=== PATIENT | male | born 1985 | race Caucasian/White ===

== ENCOUNTER 2018-07-05 08:00 | Emergency (ER) | payer OTHER ==
[2018-07-05 08:15] VITALS: BP 127/88
--- NOTE | 2018-07-05 08:45 | UC ---
Pediatric ENT HPI - HPI Summary HPI Summary: 32 year old male with sore throat. Pt c/o sore throat for a few days and mild headache. Sx started about 2-3 days ago and not improved Pt concerned about strep throat as noticed "white spots". Has 2 year at home and worried and never had mono. no fever. can swallow at this time and no extensive pain . [ End ] - History Of Current Complaint Chief Complaint: UCGeneralIllness Stated Complaint: SORE THROAT Time Seen by Provider: 07/05/18 08:21 Hx Obtained From: Patient Onset/Duration: Gradual Onset Timing: Constant Pain Intensity: 2 - Allergies/Home Medications Allergies/Adverse Reactions: Allergies Allergy/AdvReac Type Severity Reaction Status Date / Time No Known Allergies Allergy Verified 07/05/18 08:08 Home Medications: Home Medications Ibuprofen TAB* [Motrin TAB* 400 MG] 400 mg PO Q6H PRN 07/05/18 [History Confirmed 07/05/18] Past Medical History Previously Healthy: Yes - Social History Lives With: family Hx Smoking Exposure: No Review Of Systems ENT: Throat Pain All Other Systems Reviewed And Are Negative: Yes Physical Exam Triage Information Reviewed: Yes Vital Signs: Initial Vital Signs Temp 98.1 F 07/05/18 08:09 Pulse 83 07/05/18 08:09 Resp 16 07/05/18 08:09 BP 127/88 07/05/18 08:09 Pulse Ox 97 07/05/18 08:09 Vital Signs Reviewed: Yes Appearance: Well-Appearing, No Pain Distress, Well-Nourished Eyes: Positive: Normal ENT: Positive: Normal ENT inspection, Pharyngeal erythema, Tonsillar swelling, Tonsillar exudate. Negative: Nasal congestion, Nasal drainage, TM bulging, TM dull, TM red Neck: Positive: Supple Respiratory: Positive: Chest non-tender, Lungs clear, Normal breath sounds Cardiovascular: Positive: Normal Musculoskeletal: Positive: Normal Neurological: Positive: Normal Psychological: Positive: Normal Pediatric EENT Course/Dx - Course Course Of Treatment: neg rapid strep. he is very worried about his 2 year old at home getting strep for that reason will send for culture to confirm. could be mono as well -- sx started 3 days ago so early to test but can return in 1 week for testing if he wants, discussed reducing transmission of strep or mono with good hand hygeine and not sharing cups try to not kiss family / children for some time. no work until next week he declined note. - Differential Dx/Diagnosis Differential Diagnosis/HQI/PQRI: Pharyngitis, Tonsillitis Provider Diagnoses: tonsillitis Discharge - Sign-Out/Discharge Documenting (check all that apply): Patient Departure All imaging exams completed and their final reports reviewed: No Studies - Discharge Plan Condition: Good Disposition: HOME Patient Education Materials: Tonsillitis (ED) Referrals: No Primary Care Phys,NOPCP [Primary Care Provider] - 4 Days Additional Instructions: Your rapid strep testing was negative but we will also send a throat culture to confirm this negative with your 2 year at home . Return for further evaluation if you have any concerns. - Billing Disposition and Condition Condition: GOOD Disposition: Home
--- NOTE | 2018-07-08 17:12 | UC ---
- Progress Note Progress Note: 07/08/2018 Throat culture final negative, no growth No change Guerita Hannah PA-C Discharge - Sign-Out/Discharge Documenting (check all that apply): Patient Departure - D/c home All imaging exams completed and their final reports reviewed: No Studies - Discharge Plan Condition: Good Disposition: HOME Patient Education Materials: Tonsillitis (ED) Referrals: No Primary Care Phys,NOPCP [Primary Care Provider] - 4 Days Additional Instructions: Your rapid strep testing was negative but we will also send a throat culture to confirm this negative with your 2 year at home . Return for further evaluation if you have any concerns. - Billing Disposition and Condition Condition: GOOD Disposition: Home
== END 2018-07-05 09:00 | disposition home or self-care (01) ==
LOC: UCEAST 08:00
DX: J03.90 Acute tonsillitis, unspecified (principal)
CPT/HCPCS: 87070; 87651; 99211; G0463